=== PATIENT | female | born 1985 | race Caucasian/White ===

== ENCOUNTER 2021-08-29 17:18 | Inpatient (IN) | payer MEDICAID ==
[~2021-08-29] VITALS: Ht 152.4 cm; Wt 112.5 kg
[2021-08-29] MEDS ORDERED: OXYC-128 PO (17:51)
[2021-08-29] MEDS ORDERED: IBUP-1957 PO (17:51)
[2021-08-29] MEDS ORDERED: OMEP40CA21 PO (17:51)
[2021-08-29] MEDS ORDERED: TRIA1TAB3 PO (17:51)
[2021-08-29] MEDS ORDERED: DIPH25CA83 PO (17:51)
[2021-08-29] MEDS ORDERED: ALBU18HF2 IH (17:51)
[2021-08-29 18:10] VITALS: BP 115/73
--- NOTE | 2021-08-29 18:13 | NUR ---
MS RN NOTES: RECEIVED PT VIA [facility] PRN #[id number] FROM [facility]. PT A/O X4. ABLE TO MAKE NEEDS KNOWN. ON RA, NO S/S OF SOB OR ACUTE DISTRESS NOTED. IV ACCESS AT RAC#20, SL PATENT. PT C/O OF PAIN 3-05/20. MED RECON AND BELONGINGS LIST DONE. SAFETY MEASURES IN PLACE: HOB ELEVATED, BED LOCKED AT LOWEST POSITION, SIDERAILS UP X2, CALL LIGHT AND TABLE WITHIN REACH. PT MADE COMFORTABLE, WILL CONT TO MONITOR.
--- NOTE | 2021-08-29 19:15 | NUR ---
RN opening notes Received Pt from morning nurse. Pt is a direct admit from [facility]. Pt is sitting in bed comfortably watching TV. Pt is alert and orientedX4. On room air. No SOB. No S/S of distress noted. IV site at RAC# 20 is clean, intact and SL. Safety precautions is maintained. Bed at low position, brakes locked, side rails upX 2, hob elevated, bed alarm is on and call light is within reach. Will continue to monitor.
[2021-08-29 20:00] VITALS: BP 121/85
[2021-08-29 20:13] VITALS: BP 121/85
[2021-08-29] MEDS ORDERED: IV D5/0.45 NACL 1,000 ML IV PRN (20:30)
[2021-08-29] MEDS ORDERED: ACETAMINOPHEN 325 MG TABLET PO PRN (20:30)
[2021-08-29] MEDS ORDERED: Z GUARD REMEDY 4 OZ OINT TP PRN (20:30)
[2021-08-29] MEDS ORDERED: MAG HYDROX/AL HYDROX/SIMETH 30 ML UDC PO PRN (20:30)
[2021-08-29] MEDS ORDERED: MAGNESIUM HYDROXIDE 30 ML UDC PO PRN (20:30)
[2021-08-29] MEDS: MORPHINE SULFATE INJ 2 MG/ML DISP.SYRIN IV PRN (20:39)
--- NOTE | 2021-08-29 21:26 | NUR ---
RN notes Pt is complaining of pain on her abdomen 10/10 on pain scale and requesting pain med. administered morphine 4mg/iv/prn as ordered. VS is stable. safety precautions is maintained. Will continue to monitor.
[2021-08-29] MEDS ORDERED: PIPERACILLIN /TAZOBACTAM 3.375 G VIAL IV ONE (23:20)
[2021-08-29] MEDS: PIPERACILLIN /TAZOBACTAM 3.375 G in IV D5W 50 ML IV SCH (23:23)
[2021-08-30] MEDS: MORPHINE SULFATE INJ 2 MG/ML DISP.SYRIN IV PRN ×3 (02:46→22:04)
[2021-08-30] MEDS ORDERED: PIPERACILLIN /TAZOBACTAM 3.375 G VIAL IV ONE (05:06)
[2021-08-30] MEDS: PIPERACILLIN /TAZOBACTAM 3.375 G in IV D5W 50 ML IV SCH (05:07)
[2021-08-30] MEDS: ONDANSETRON HCL/PF 4 MG/2 ML VIAL IVP PRN ×2 (06:35→13:17)
--- NOTE | 2021-08-30 06:36 | NUR ---
RN notes Pt is feeling nauseated and requesting meds. administered zofran 4mg/iv/prn as ordered. safety precautions is maintained. will continue to monitor.
--- NOTE | 2021-08-30 06:43 | NUR ---
RN closing notes Pt is resting in bed comfortably. Pt is alert and orientedX4. On room air. No SOB. No S/S of distress noted. NPO status. VS is stable. Routine meds were given as ordered including prn meds. IV site at RAC# 20 is clean, intact and SL. R hand# 22 is clean, intact and infusing well D5 1/2NS@ 75ml/hr. kept Pt clean, dry and comfortable. Safety precautions is maintained. Bed at low position, brakes locked, side rails upX 2, hob elevated, bed alarm is on and call light is within reach. Will endorse to am nurse for MORRIS..
--- NOTE | 2021-08-30 07:10 | NUR ---
MS RN OPENING NOTE: RECEIVED PT. IN BED, AWAKE, AOX4. ABLE TO MAKE NEEDS KNOWN. COMPLAINING OF 4/10 PAIN AT THIS TIME BUT REFUSED PAIN MED. EDUCATED PT. ON IMPORTANCE OF PROPER PAIN MED TIMING. VERBALIZED UNDERSTANDING. ON ROOM AIR, WITH NO S/S OF RESPIRATORY DISTRESS. PT. ON NPO EXCEPT MEDS. IV ON R AC #20G SALINE LOCKED, PATENT AND FLUSHING WELL. SHE ALSO HAS R HAND #22G WITH D5 1/2 NS RUNNING @ 75ML/HR, INFUSING WELL WITH, BOTH IV SITES HAVE NO S/S OF INFILTRATION AND PHLEBITIS. SAFETY AND FALL PRECAUTIONS IN PLACE: BED IN LOWEST AND LOCKED POSITION, CALL LIGHT AND BELONGINGS WITHIN EASY REACH, SIDE RAILS UP X2, HOB ELEVATED, BED ALARM ON, NON-SLIP SOCKS ON. WILL CONTINUE TO MONITOR FOR ANY CHANGES.
[2021-08-30 07:22] LABS: BASOPHILS % (AUTO) 0.1 % (0.0-2.0); EOSINOPHILS % (AUTO) 1.7 % (0.0-6.0); HEMATOCRIT 35 % (33-45); HEMOGLOBIN 11.1 g/dL (11.5-14.8); LYMPHOCYTES # (AUTO) 1.6 K/uL (0.8-4.8); LYMPHOCYTES % (AUTO) 33.5 % (20.0-44.0); MEAN CORPUSCULAR HGB CONC 32 g/dl (31.0-36.0); MEAN CORPUSCULAR VOLUME 76 fL (82-100); MONOCYTES # (AUTO) 0.4 K/uL (0.1-1.30); MONOCYTES % (AUTO) 8.4 % (2.0-12.0); NEUTROPHILS # (AUTO) 2.7 K/uL (1.8-8.9); NEUTROPHILS % (AUTO) 56.3 % (43.0-81.0); PLATELET COUNT (AUTO) 309 K/uL (150-450); RED BLOOD CELL COUNT(AUTO) 4.58 MIL/uL (4.0-5.2); WHITE BLOOD COUNT (AUTO) 4.9 K/uL (4.3-11.0)
[2021-08-30] MEDS ORDERED: diphenhydrAMINE HCL 25 MG CAPSULE PO PRN (08:00)
[2021-08-30 08:06] LABS: ALBUMIN 2.8 g/dL (3.4-5.0); BILIRUBIN,DIRECT 0.1 mg/dL (0.0-0.2); BILIRUBIN,TOTAL 0.4 mg/dL (0.2-1.0); CALCIUM, SERUM 8.3 mg/dL (8.5-10.1); CREATININE 0.8 mg/dL (0.6-1.3); MAGNESIUM 2.2 mg/dL (1.8-2.4); PHOSPHORUS 4.2 mg/dL (2.5-4.9); POTASSIUM 3.7 mmol/L (3.5-5.1); TOTAL PROTEIN, SERUM 6.6 g/dL (6.4-8.2)
[2021-08-30 08:26] VITALS: BP 122/68
--- NOTE | 2021-08-30 10:00 | NUR ---
MS RN NOTE: PT. SIGNED INFORMED CONSENT FOR LAPAROSCOPIC APPENDECTOMY. STILL WAITING FOR TIME AND DATE OF SURGERY.
[2021-08-30] MEDS ORDERED: PIPERACILLIN /TAZOBACTAM 3.375 G in IV D5W 50 ML IV SCH (12:00)
[2021-08-30] MEDS ORDERED: diphenhydrAMINE HCL 50 MG/ML VIAL IV PRN (13:00)
[2021-08-30] MEDS: PIPERACILLIN /TAZOBACTAM 3.375 G in IV D5W 100 ML IV SCH ×2 (13:17→21:04)
--- NOTE | 2021-08-30 13:50 | NUR ---
MS RN NOTE: PT. COMPLAINING OF NAUSEA WITH NO VOMITING. ZOFRAN 4MG IV GIVEN AT 1317. REASSESSED AND PT. VERBALIZED RELIEF FROM NAUSEA. WILL CONTINUE TO MONITOR FOR ANY CHANGES.
[2021-08-30] MEDS ORDERED: LIDOCAINE 1%-EPI 1:100,000 20 ML VIAL ONE (15:06)
[2021-08-30] MEDS ORDERED: BUPIVACAINE 0.5 % PF 150 MG/30 ML VIAL ONE (15:07)
--- NOTE | 2021-08-30 15:20 | NUR ---
MS RN NOTE: PT. COMPLAINED OF ITCHING ON THE CHEST. BENADRYL 25 MG IV ADMINISTERED. WILL REASSESS AND MONITOR PT. FOR ANY CHANGES.
[2021-08-30] MEDS ORDERED: ROCURONIUM BROMIDE 50 MG/5 ML ONE (15:36)
[2021-08-30] MEDS ORDERED: FENTANYL PF 250MCG/5ML AMPUL ONE (15:36)
[2021-08-30] MEDS ORDERED: MIDAZOLAM HCL 2 MG/2ML VIAL ONE (15:36)
[2021-08-30] MEDS ORDERED: GLYCOPYRROLATE 0.2 MG/ML VIAL ONE (15:37)
[2021-08-30] MEDS ORDERED: SUCCINYLCHOLINE CHLORIDE 20 MG/ML VIAL ONE (15:38)
[2021-08-30] MEDS ORDERED: DEXAMETHASONE SOD PHOSPHATE 4 MG/ML VIAL ONE (15:38)
--- NOTE | 2021-08-30 15:55 | NUR ---
MS RN NOTE: PT. PICKED UP BY FUEL CELL ENGINEERALEJANDRINA MAGAÑA FOR LAPARASCOPIC APPENDECTOMY.
[2021-08-30 16:14] VITALS: BP 138/70
[2021-08-30] MEDS ORDERED: BACITRACIN ZINC OINT (15 GM) 15 GM TUBE TP ONE (17:03)
[2021-08-30] MEDS ORDERED: FENTANYL PF 100MCG/2ML AMPUL ONE (17:39)
[2021-08-30 18:25] VITALS: BP 126/21
[2021-08-30] MEDS: IV LR 1000 ML 1,000 ML IV PRN (18:31)
[2021-08-30 18:40] VITALS: BP 112/70
[2021-08-30 18:55] VITALS: BP 106/70
--- NOTE | 2021-08-30 19:00 | NUR ---
MS RN CLOSING NOTE: PT. REMAINS IN BED, RESTING, SLIGHTLY LETHARGIC, AOX4. S/P LAPARASCOPIC APPENDECTOMY BY DR. SHIELDS. CAME BACK TO UNIT AT 1820 WITH RN BILLY. PT. HAS 3 LAPARASCOPIC SITES ON L ABDOMEN. DRESSING C/D/I. NO SIGNS OF BLEEDING NOTED. ABLE TO MAKE NEEDS KNOWN AND ABLE TO FOLLOW VERBAL COMMANDS. COMPLAINING OF 3/10 PAIN AT THIS TIME THAT SHE STATES "IT FEELS TIGHT AND FULL", FENTANYL GIVEN AT 1742 IN OR. ON ROOM AIR, BREATHING EVEN AND UNLABORED. PT. ON CLEAR LIQUID DIET. ADVANCE TOLERATED IN AM. IV ON R AC #20G SALINE LOCKED, PATENT AND FLUSHING WELL. SHE ALSO HAS R HAND #22G WITH LR RUNNING @ 125ML/HR, INFUSING WELL, BOTH IV SITES HAVE NO S/S OF INFILTRATION OR PHLEBITIS. EDUCATED PT. ON DEEP BREATHING EXERCISES, COUGHING AND USE OF INCETIVE SPIROMETRY. SAFETY AND FALL PRECAUTIONS IN PLACE: BED IN LOWEST AND LOCKED POSITION, CALL LIGHT AND BELONGINGS WITHIN EASY REACH, SIDE RAILS UP X2, HOB ELEVATED, BED ALARM ON, NON-SLIP SOCKS ON. WILL ENDORSE CONTINUITY OF CARE TO SUPERVISOR [employer]LL[employer]ARMING RN.
--- NOTE | 2021-08-30 19:15 | NUR ---
MS RN OPENING NOTES: RECEIVED PATIENT IN BED, AWAKE, SLEEPY, EASILY AROUSABLE. NO S/S OF DISTRESS NOTED. NO COMPLAIN OF PAIN. CALL LIGHT WITHIN REACH. BED ALARM ON. BED IN LOWEST AND LOCKED POSITION. INCENTIVE SPIROMETER INSTRUCTED, VERBALIZED UNDERSTANDING.
[2021-08-30 20:00] VITALS: BP 116/60
[2021-08-31] MEDS: MORPHINE SULFATE INJ 2 MG/ML DISP.SYRIN IV PRN ×3 (03:32→12:15)
[2021-08-31] MEDS: PIPERACILLIN /TAZOBACTAM 3.375 G in IV D5W 100 ML IV SCH ×3 (04:12→20:39)
[2021-08-31] MEDS: IV LR 1000 ML 1,000 ML IV PRN (04:13)
[2021-08-31 06:57] LABS: CALCIUM, SERUM 9.1 mg/dL (8.5-10.1); CREATININE 0.7 mg/dL (0.6-1.3); MAGNESIUM 2.3 mg/dL (1.8-2.4); PHOSPHORUS 3.7 mg/dL (2.5-4.9); POTASSIUM 4.6 mmol/L (3.5-5.1)
--- NOTE | 2021-08-31 07:05 | NUR ---
MS RN OPENING NOTE: RECEIVED PT. IN BED, AWAKE AOX4. S/P LAPARASCOPIC APPENDECTOMY BY DR. SHIELDS YESTERDAY. PT. HAS 3 LAPAROSCOPIC SITES ON L ABDOMEN. DRESSING C/D/I. NO SIGNS OF BLEEDING NOTED. ABLE TO MAKE NEEDS KNOWN AND ABLE TO FOLLOW VERBAL COMMANDS. COMPLAINING OF 4/10 PAIN AT THIS TIME BUT SHE SAID SHE CAN WAIT FOR THE NEXT DOSE OF PAIN MED. ON ROOM AIR, BREATHING EVEN AND UNLABORED. PT. ON CLEAR LIQUID DIET. ADVANCE TOLERATED TODAY. IV ON R AC #20G SALINE LOCKED, PATENT AND FLUSHING WELL. SHE ALSO HAS R HAND #22G WITH LR RUNNING @ 125ML/HR, INFUSING WELL, BOTH IV SITES HAVE NO S/S OF INFILTRATION OR PHLEBITIS. INCENTIVE SPIROMETRY AT BEDSIDE AND REINFORCED EDUCATION TO USE IT AT LEAST 10X/HR. SAFETY AND FALL PRECAUTIONS IN PLACE: BED IN LOWEST AND LOCKED POSITION, CALL LIGHT AND BELONGINGS WITHIN EASY REACH, SIDE RAILS UP X2, HOB ELEVATED, BED ALARM ON, NON-SLIP SOCKS ON. WILL CONTINUE TO MONITOR FOR ANY CHANGES.
[2021-08-31 07:18] LABS: BASOPHILS % (AUTO) 0.1 % (0.0-2.0); HEMATOCRIT 37 % (33-45); HEMOGLOBIN 11.6 g/dL (11.5-14.8); LYMPHOCYTES # (AUTO) 0.9 K/uL (0.8-4.8); LYMPHOCYTES % (AUTO) 9.3 % (20.0-44.0); MEAN CORPUSCULAR HGB CONC 32 g/dl (31.0-36.0); MEAN CORPUSCULAR VOLUME 78 fL (82-100); MONOCYTES # (AUTO) 0.3 K/uL (0.1-1.30); MONOCYTES % (AUTO) 3.1 % (2.0-12.0); NEUTROPHILS # (AUTO) 8.6 K/uL (1.8-8.9); NEUTROPHILS % (AUTO) 87.5 % (43.0-81.0); PLATELET COUNT (AUTO) 343 K/uL (150-450); RED BLOOD CELL COUNT(AUTO) 4.73 MIL/uL (4.0-5.2); WHITE BLOOD COUNT (AUTO) 9.8 K/uL (4.3-11.0)
[2021-08-31 08:18] VITALS: BP 140/68
[2021-08-31 09:53] LABS: BAND % (MANUAL) 2 % (0.0-5.0); LYMPHOCYTES % (MANUAL) 7 % (16-48); MONOCYTES % (MANUAL) 2 % (0-11.0); NEUTROPHILS % (MANUAL) 89 (42-76)
[2021-08-31 12:19] LABS: IRON, SERUM 28 ug/dl (50-175); TOTAL IRON BINDING CAPACITY 254 ug/dl (250-450)
[2021-08-31] MEDS ORDERED: HYDROCODONE/APAP 10/325MG TABLET PO PRN (13:00)
--- NOTE | 2021-08-31 13:00 | NUR ---
MS RN NOTE: PT. AMBULATED 100 FT. IN HOSPITAL HALLWAY WITH FWW. PT. WAS GIVEN MORPHINE 4MG BEFOREHAND. HAD A LITTLE BIT OF PAIN VERBALIZED BUT SHE WANTS TO "PUSH HERSELF TO GET UP AND WALK". PT. BACK IN BED NOW AND RESTING. WILL CONTINUE TO MONITOR PAIN AND KEEP ENCOURAGING TO AMBULATE.
--- NOTE | 2021-08-31 15:15 | NUR ---
MS RN NOTE: DR. SHIELDS WAS AT BEDSIDE. ORDERED PT. TO HAVE MECHANICAL SOFT DIET STARTING DINNER TIME. HE ALSO ORDERED MOTRIN 800 MG PO; NEURONTIN 300 MG PO; AND TYLENOL 650 MG PO; ALL Q8H ROUND THE CLOCK UNTIL PAIN PERSIST. WILL CONTINUE TO MONITOR PT.'S PAIN.
[2021-08-31] MEDS ORDERED: ACETAMINOPHEN 325 MG TABLET PO SCH ×2 (16:00→16:30)
[2021-08-31] MEDS ORDERED: GABAPENTIN 300 MG CAPSULE PO SCH (16:00)
[2021-08-31 16:25] LABS: FERRITIN 81 ng/mL (8-388)
[2021-08-31] MEDS ORDERED: IBUPROFEN 800 MG TABLET PO SCH (16:30)
[2021-08-31] MEDS ORDERED: IBUPROFEN 400 MG TABLET PO SCH ×2 (16:30)
--- NOTE | 2021-08-31 19:15 | NUR ---
MS RN CLOSING NOTE: PT. REMAINS IN BED, RESTING, AOX4. S/P LAPARASCOPIC APPENDECTOMY BY DR. SHIELDS YESTERDAY. PT. HAS 3 LAPAROSCOPIC SITES ON LEFT ABDOMEN. DRESSING C/D/I. NO SIGNS OF BLEEDING NOTED. ABLE TO VERBALIZE NEEDS KNOWN. NO COMPLAINTS OF PAIN AT THIS TIME. ON ROOM AIR, WITH NO S/S OF RESPIRATORY DISTRESS. PT.ON MECHANICAL SOFT DIET STARTING DINNER TODAY. ADVANCE DIET TOLERATED. IV ON R AC #20G SALINE LOCKED, PATENT AND FLUSHING WELL. SHE ALSO HAS R HAND #22G WITH LR RUNNING @ 125ML/HR, INFUSING WELL, BOTH IV SITES HAVE NO S/S OF INFILTRATION OR PHLEBITIS. ABLE TO AMBULATE x2 WITH FWW AND STANDBY ASSIST THIS SHIFT. SAFETY AND FALL PRECAUTIONS IN PLACE: BED IN LOWEST AND LOCKED POSITION, CALL LIGHT AND BELONGINGS WITHIN EASY REACH, SIDE RAILS UP X2, HOB ELEVATED, BED ALARM ON, NON-SLIP SOCKS ON. WILL ENDORSE CONTINUITY OF CARE TO RECREATIONAL THERAPY TECHNICIAN RN.
--- NOTE | 2021-08-31 19:41 | NUR ---
MS RN OPENING NOTE: PT IN BED, RESTING, AOX4. S/P LAPARASCOPIC APPENDECTOMY BY DR. SHIELDS YESTERDAY. PT. HAS 3 LAPAROSCOPIC SITES ON LEFT ABDOMEN. DRESSING C/D/I. NO SIGNS OF BLEEDING NOTED. ABLE TO VERBALIZE NEEDS KNOWN. NO COMPLAINTS OF PAIN AT THIS TIME. ON ROOM AIR, WITH NO S/S OF RESPIRATORY DISTRESS. PT.ON MECHANICAL SOFT DIET STARTING DINNER TODAY. ADVANCE DIET TOLERATED. IV ON RAC #20G SALINE LOCKED, PATENT AND FLUSHING WELL. SHE ALSO HAS R HAND #22G WITH LR RUNNING @ 125ML/HR, INFUSING WELL, BOTH IV SITES HAVE NO S/S OF INFILTRATION OR PHLEBITIS. ABLE TO AMBULATE x2 WITH FWW AND STANDBY ASSIST DURING DAY SHIFT. SAFETY AND FALL PRECAUTIONS IN PLACE: BED IN LOWEST AND LOCKED POSITION, CALL LIGHT AND BELONGINGS WITHIN EASY REACH, SIDE RAILS UP X2, HOB ELEVATED, BED ALARM ON, NON-SLIP SOCKS ON. WILL CONTINUE TO MONITOR.
[2021-08-31 19:53] VITALS: BP 133/77
[2021-08-31] MEDS: IBUPROFEN 400 MG TABLET PO SCH (23:45)
[2021-08-31] MEDS: GABAPENTIN 300 MG CAPSULE PO SCH (23:45)
[2021-08-31] MEDS: ACETAMINOPHEN 325 MG TABLET PO SCH (23:55)
[2021-09-01] MEDS: PIPERACILLIN /TAZOBACTAM 3.375 G in IV D5W 100 ML IV SCH ×3 (04:31→21:31)
--- NOTE | 2021-09-01 06:28 | NUR ---
MS RN CLOSING NOTE: PT IN BED, RESTING, AOX4. S/P LAPARASCOPIC APPENDECTOMY BY DR. SHIELDS. PT. HAS 3 LAPAROSCOPIC SITES ON LEFT ABDOMEN. DRESSING C/D/I. NO SIGNS OF BLEEDING NOTED. ABLE TO VERBALIZE NEEDS KNOWN. NO COMPLAINTS OF PAIN AT THIS TIME. ON ROOM AIR, WITH NO S/S OF RESPIRATORY DISTRESS. PT.ON MECHANICAL SOFT DIET ADVANCE DIET TOLERATED. IV ON RAC #20G SALINE LOCKED, PATENT AND FLUSHING WELL. SHE ALSO HAS R HAND #22G WITH LR RUNNING @ 125ML/HR, INFUSING WELL, BOTH IV SITES HAVE NO S/S OF INFILTRATION OR PHLEBITIS. ABLE TO AMBULATE x2 WITH FWW AND STANDBY ASSIST DURING DAY SHIFT. SAFETY AND FALL PRECAUTIONS IN PLACE: BED IN LOWEST AND LOCKED POSITION, CALL LIGHT AND BELONGINGS WITHIN EASY REACH, SIDE RAILS UP X2, HOB ELEVATED, BED ALARM ON, NON-SLIP SOCKS ON. WILL ENDORSE CARE TO DAY SHIFT FOR MORRIS.
--- NOTE | 2021-09-01 07:34 | NUR ---
ms rn ms rn received on bed, awake,alert,oriented x4,s/p appendectomy, w/ dressing dry and intact,respirations even and unlabored,no sob noted, lungs are clear,abdomen soft,positive bowel sounds,denies pain at this time, will monitor patient.
[2021-09-01 08:00] VITALS: BP 130/75
[2021-09-01] MEDS: ACETAMINOPHEN 325 MG TABLET PO SCH ×2 (08:00→16:00)
[2021-09-01] MEDS: IBUPROFEN 400 MG TABLET PO SCH ×2 (08:23→16:14)
[2021-09-01] MEDS: GABAPENTIN 300 MG CAPSULE PO SCH ×2 (08:23→16:14)
--- NOTE | 2021-09-01 09:00 | NUR ---
ms suarez breakfast served.due meds given,tolerated well.
[2021-09-01 12:00] VITALS: BP 128/74
[2021-09-01 16:00] VITALS: BP 141/81
--- NOTE | 2021-09-01 16:00 | NUR ---
ms rn up to the bathroom 2x and was tolerated, pain meds regularly given at this time.
[2021-09-01 16:06] VITALS: BP 141/81
--- NOTE | 2021-09-01 18:21 | NUR ---
ms rn on bedm no distress noted all needs attended.
--- NOTE | 2021-09-01 19:34 | NUR ---
MS RN OPENING NOTE: PT IN BED, RESTING, AOX4. S/P LAPARASCOPIC APPENDECTOMY BY DR. SHIELDS. PT. HAS 3 LAPAROSCOPIC SITES ON LEFT ABDOMEN. DRESSING C/D/I. NO SIGNS OF BLEEDING NOTED. ABLE TO VERBALIZE NEEDS KNOWN. NO COMPLAINTS OF PAIN AT THIS TIME. ON ROOM AIR, WITH NO S/S OF RESPIRATORY DISTRESS. PT.ON MECHANICAL SOFT DIET ADVANCE DIET TOLERATED. IV ON RAC #20G SALINE LOCKED, PATENT AND FLUSHING WELL. SHE ALSO HAS R HAND #22G WITH LR RUNNING @ 125ML/HR, INFUSING WELL, BOTH IV SITES HAVE NO S/S OF INFILTRATION OR PHLEBITIS. ABLE TO AMBULATE x2 WITH FWW AND STANDBY ASSIST. SAFETY AND FALL PRECAUTIONS IN PLACE: BED IN LOWEST AND LOCKED POSITION, CALL LIGHT AND BELONGINGS WITHIN EASY REACH, SIDE RAILS UP X2, HOB ELEVATED, BED ALARM ON, NON-SLIP SOCKS ON. WILL CONTINUE TO MONITOR.
[2021-09-01 20:00] VITALS: BP 126/67
--- NOTE | 2021-09-01 20:16 | NUR ---
MS RN NOTES CHANGE OF CARE TO RN MONIK REPORT GIVEN.
[2021-09-01] MEDS: ONDANSETRON HCL/PF 4 MG/2 ML VIAL IVP PRN (21:35)
--- NOTE | 2021-09-01 21:35 | NUR ---
MS RN NOTES C/O NAUSEA,ZOFRAN 4MG IV GIVEN ORDERED
--- NOTE | 2021-09-02 00:30 | NUR ---
MS RN NOTES OFFERED MOTRIN 800MG,NEURONTIN 300MG,TYLENOL 650 PO BUT REFUSED
--- NOTE | 2021-09-02 00:45 | NUR ---
MS RN NOTES CLAIMED SLIGHT SHORTNESS OB BREATH,HOB ELEVATED,ENCOURAGED TO USE IS WHILE AWAKE,O2 SAT ROOM AIR 99%.
--- NOTE | 2021-09-02 03:30 | NUR ---
MS RN NOTES AWAKE,IN PAIN,ASSISSTED TO BEDSIDE COMMODE TO NAOMI
--- NOTE | 2021-09-02 03:36 | NUR ---
MS RN NOTES PAIN MANAGEMENT C/O ABDOMINAL PAIN 9/10 ON PAIN SCALE,MORPHINE 4MG IV GIVEN ORDERED.VITAL SIGNS STABLE.
[2021-09-02] MEDS: ONDANSETRON HCL/PF 4 MG/2 ML VIAL IVP PRN ×3 (03:55→21:43)
--- NOTE | 2021-09-02 03:55 | NUR ---
MS RN NOTES BACK TO BED,C/O FEELING NAUSEATED,ZOFRAN 4MG IV GIVEN ORDERED
[2021-09-02] MEDS: MORPHINE SULFATE INJ 2 MG/ML DISP.SYRIN IV PRN ×2 (03:56→09:06)
[2021-09-02] MEDS: PIPERACILLIN /TAZOBACTAM 3.375 G in IV D5W 100 ML IV SCH ×3 (04:58→21:36)
--- NOTE | 2021-09-02 06:56 | NUR ---
MS RN NOTES SLEPT WITH INTERVALS,NAUSEA IMPROVED.ENCOURAGED TO DO IS WHILE AWAKE,ENCOURAGED TO AMBULATE FOR FAST RECOVERY.ASSIST WITH ADL'S,CALL LIGHT IN REACH,NEEDS ATTENDED.
[2021-09-02] MEDS: GABAPENTIN 300 MG CAPSULE PO SCH ×3 (07:38→18:00)
[2021-09-02] MEDS: IBUPROFEN 400 MG TABLET PO SCH ×3 (07:38→18:00)
--- NOTE | 2021-09-02 07:40 | NUR ---
RN OPENING NOTE PT RECEIVED IN BED AND AWAKE AOX4. S/P PREVIOUS LAPARASCOPIC APPENDECTOMY BY DR. SHIELDS. DRESSING REMAINS DRY AND INTACT. ABLE TO VERBALIZE NEEDS KNOWN. PATIENT HAD NO C/O ACUTE/SEVERE PAIN UPON ASSESSMENT. REMAINS ON ROOM AIR WITH NO S/S OF RESPIRATORY DISTRESS OR SOB. IV ACCESS TO RAC AND R HAND SALINE LOCKED, PATENT AND FLUSHING WELL. ABLE TO TRANSFER FROM BED TO BEDSIDE COMMODE WITH STANDBY ASSIST. SAFETY AND FALL PRECAUTIONS IN PLACE: BED IN LOWEST AND LOCKED POSITION, CALL LIGHT WITHIN REACH, SIDE RAILS UP X2, HOB ELEVATED, BED ALARM ON, NON-SLIP SOCKS ON. WILL CONTINUE TO MONITOR.
[2021-09-02 08:00] VITALS: BP 132/78
[2021-09-02] MEDS: ACETAMINOPHEN 325 MG TABLET PO SCH ×3 (09:05→18:00)
[2021-09-02] MEDS ORDERED: ALBUTEROL SULFATE 8 GM HFA.AER.AD IH PRN (09:30)
[2021-09-02] MEDS ORDERED: diphenhydrAMINE HCL 25 MG CAPSULE PO PRN (09:30)
[2021-09-02] MEDS ORDERED: OXYC-128 PO (09:31)
[2021-09-02] MEDS ORDERED: MAGNESIUM CITRATE 296 ML BOTTLE PO ONE (10:00)
[2021-09-02] MEDS ORDERED: ALBUTEROL FS 2.5 MG/0.5 ML VIAL.NEB NEB PRN (10:00)
[2021-09-02] MEDS ORDERED: MORPHINE SULFATE INJ 4 MG/ML DISP.SYRIN IV PRN (10:00)
[2021-09-02] MEDS: IV LR 1000 ML 1,000 ML IV PRN (13:19)
[2021-09-02 14:24] LABS: BILIRUBIN,URINE NEGATIVE (NEGATIVE); COLOR,URINE YELLOW (YELLOW); LEUKOCYTE ESTERASE ,URINE NEGATIVE (NEGATIVE); NITRITE, URINE NEGATIVE (NEGATIVE); PH,URINE 6.5 (5.0-8.0); PROTEIN,URINE NEGATIVE (NEGATIVE); UGLUCOSE NEGATIVE (NEGATIVE); UROBILINOGEN,URINE 0.2 EU/dL (0.2)
[2021-09-02] MEDS: oxyCODONE/APAP (5/325 MG) 1 UDTAB TABLET PO PRN ×2 (15:15→21:44)
--- NOTE | 2021-09-02 18:55 | NUR ---
RN CLOSING NOTE PT IN BED FOR MAJORITY OF SHIFT, HOWEVER UP TO USE BATHROOM AND AMBULATION ON UNIT W/O FWW X1. INTERMITTENTLY RESTING. AOX4. REMAINS S/P LAPARASCOPIC APPENDECTOMY BY DR. SHIELDS. LAPAROSCOPIC SITES ON LEFT SIDE OF ABDOMEN. DRESSING KEPT CLEAN AND DRY WITH NO S/SX OF BLEEDING. PATIENT ABLE TO VERBALIZE NEEDS C/O PAIN TO EFFECTED ABDOMINAL AREA X2. PRN MORPHINE GIVEN @ 0900 AND PRN PERCOCET GIVEN @ 1615. TOLERATED BOTH MEDICATIONS WELL; ALSO TOLEATED ROUTINE MEDICATIONS WELL. VS STABLE AND WNL ON SHIFT. REMAINS ON MECHANICAL SOFT DIET (ADVANCE DIET TOLERATED). IV ON RAC AND R-HAND BOTH INFILTRATED ON SHIT. IMMEDIATELY TAKEN OUT. IV ACCESS TO L-HAND 24G PLACED. INTACT, PATENT, AND FLUSHING WELL WITH LR RUNNING CONTINUOUS @ 125ML/HR. ENCOURAGED TO AMBULATE AND MOVE MORE TO INCREASE CHANCE OF PASSING A BOWEL MOVEMENT. PATIENT VERBALIZES UNDERSTANDING. SAFETY AND FALL PRECAUTIONS IN PLACE: BED IN LOWEST AND LOCKED POSITION, CALL LIGHT WITHIN REACH, SIDE RAILS UP X2, HOB ELEVATED, BED ALARM ON, NON-SLIP SOCKS ON. WILL CONTINUE TO MONITOR.
--- NOTE | 2021-09-02 19:30 | NUR ---
MS RN OPENING NOTE RECEIVED PATIENT IN BED, A/OX4. NO S/S OF APPARENT DISTRESS IN ROOM AIR. NO C/O PAIN AT THIS TIME. PATIENT VERBALIZING WORRIES, EMOTIONAL SUPPORT GIVEN. R. HAND #20G RUNNING @125MLS/HR AT THIS TIME. RE-ORIENTED AND ENCOURAGED WITH THE USE OF CALL LIGHT. SAFETY IN PLACE. WILL CONTINUE WITH PLAN OF CARE FOR PATIENT.
[2021-09-02 20:11] VITALS: BP 115/72
[2021-09-03] MEDS: GABAPENTIN 300 MG CAPSULE PO SCH ×3 (00:03→10:53)
[2021-09-03] MEDS: IBUPROFEN 400 MG TABLET PO SCH ×3 (00:04→10:54)
--- NOTE | 2021-09-03 00:06 | NUR ---
MS RN NOTE PATIENT PASSED BIG BM AT THIS TIME.
--- NOTE | 2021-09-03 03:29 | NUR ---
MS RN NOTE WASTED 1 TAB OF PERCOCET. PATIENT ONLY TOOK 1 TAB EARLIER WHEN I GAVE IT 5 HOURS AGO. PER PATIENT SHE LIKES TAKING IT ONE AT A TIME BUT IT HAS ALREADY BEEN 5 HOURS. WASTED WITH ALEJANDRINA OLVERA. CHARGE NURSE NEYMAR BURNETT. OPENED TAB OF PERCOCET 5 DISPOSED IN PROPER DISPOSAL BIN.
[2021-09-03] MEDS: ONDANSETRON HCL/PF 4 MG/2 ML VIAL IVP PRN ×3 (03:44→13:08)
[2021-09-03] MEDS: oxyCODONE/APAP (5/325 MG) 1 UDTAB TABLET PO PRN ×2 (03:45→13:09)
[2021-09-03] MEDS: PIPERACILLIN /TAZOBACTAM 3.375 G in IV D5W 100 ML IV SCH ×2 (05:29→13:08)
--- NOTE | 2021-09-03 07:24 | NUR ---
MS RN NOTE NO SIGNIFICANT CHANGE WITH PATIENT. ALL NEEDS ATTENDED. FOR D/C TODAY. PATIENT PASSED BM. ENDORSED TO MORNING SHIFT RN FOR CONTINUITY OF CARE.
[2021-09-03] MEDS ORDERED: PANTOPRAZOLE 40 MG TABLET.DR PO SCH (07:30)
[2021-09-03] MEDS ORDERED: Medication Not On Formulary EA (Omeprazole 40 MG) PO SCH (07:30)
--- NOTE | 2021-09-03 07:30 | NUR ---
MS RN OPENING NOTE RECEIVED PATIENT IN BED, A/OX4. NO S/S OF SOB AND ACUTE DISTRESS AT THE MOMENT, ON RA TOLERATING WELL, ABLE TO VERBALIZE NEEDS. NO C/O PAIN AT THIS TIME. IV ACCESS AT R HAND #20G RUNNING @125MLS/HR. SAFETY MEASURES IN PLACE, HOB ELEVATED, LOCKED AT LOWEST POSITION, SIDERAILS UP X2, CALL LIGHT AND TABLE WITHIN REACH, WILL CONTINUE WITH PLAN OF CARE FOR PATIENT.
[2021-09-03] MEDS: ACETAMINOPHEN 325 MG TABLET PO SCH ×2 (08:00)
[2021-09-03] MEDS ORDERED: ONDANSETRON HCL/PF 4 MG/2 ML VIAL IV PRN (13:30)
--- NOTE | 2021-09-03 13:45 | NUR ---
MS FAMILY MANAGER NOTES: PT CLEARED BY CORNELIUS AGUILAR FOR DISCHARGE. PT IS CLINICALLY STABLE. IV ACCESS DC'D, ARMBAND CUT. DC INSTRUCTIONS, EDUCATIONAL MATERIALS PRINTED AND SIGNED AT BEDSIDE. HOME MEDICATION AND BELONGINGS RECONCILED, SIGNED BY PT. RN ESCORTED PT VIA WHEELCHAIR TO [facility].
== END 2021-09-03 15:40 | disposition home or self-care (01) | DRG 233 ==
LOC: MED 17:18
PROVIDERS: ADMIT Nurse Practitioner Family; ATTEND Internal Medicine
PROC: 0DTJ4ZZ Resection of Appendix, Percutaneous Endoscopic Approach (ICD-10-PCS; principal; 2021-08-30)
DX: K35.32 Acute appendicitis with perforation, localized peritonitis, and gangrene, without abscess (principal); D25.9 Leiomyoma of uterus, unspecified; D64.9 Anemia, unspecified; E66.01 Morbid (severe) obesity due to excess calories; K44.9 Diaphragmatic hernia without obstruction or gangrene; I51.7 Cardiomegaly; Z80.6 Family history of leukemia; K66.0 Peritoneal adhesions (postprocedural) (postinfection); G47.33 Obstructive sleep apnea (adult) (pediatric); Z83.3 Family history of diabetes mellitus; K29.70 Gastritis, unspecified, without bleeding; N80.9 Endometriosis, unspecified; Z87.19 Personal history of other diseases of the digestive system; Z68.42 Body mass index [BMI] 45.0-49.9, adult
CPT/HCPCS: 36415; 71045-TC; 80048-TC; 80076-TC; 82728-TC; 83540-TC; 83690-TC; 83735-TC; 84100-TC; 84703-TC; 85025-TC; 85610-TC; 86850-TC; 87081-TC; 88304-TC; 93307-TC; 97110-TC; 97530-TC; G0378; J0330; J0690; J1100; J1200; J2250; J2270; J2405; J2543; J2704; J3010; J3490; J7030; J7060; J7120